=== PATIENT | male | born 1980 | race Caucasian/White ===

== ENCOUNTER 2017-08-24 10:33 | Inpatient (IN) | payer OTHER ==
[2017-08-24 10:38] VITALS: BMI 25.9
--- NOTE | 2017-08-24 12:38 | HP ---
COWS - Scale Resting Pulse: 1= [place] 81-100 Sweatin= Chills/Flushing Restless Observation: 3= Extraneous Movement Pupil Size: 1= Pupils >than Normal Bone or Joint Aches: 2= Severe Diffuse Aches Runny Nose/ Eye Tearin= Runny Nose/Eyes GI Upset > 30mins: 1= Stomach Cramp Tremor Observation: 2= Slight Tremor Visible Yawning Observation: 2= >3x During Session Anxiety or Irritability: 2=Irritable/Anxious Goose Flesh Skin: 0=Smooth Skin COWS Score: 17 Admission [facility] Chief Complaint: withdrawal sx Allergies/Adverse Reactions: Allergies Allergy/AdvReac Type Severity Reaction Status Date / Time No Known Allergies Allergy Verified 08/24/17 12:17 History of Present Illness: 37 years old male with long history of opiate, nicotine dependence has hypertension diabetes i is admitted to detox Exam Limitations: No Limitations - Ebola screening Have you traveled outside of the country in the last 21 days: No (N) Have you had contact with anyone from an Ebola affected area: No Have you been sick,other than usual withdrawal symptoms: No Do you have a fever: No - Review of Systems Constitutional: Changes in sleep, Weight Stable EENT: reports: Blurred Vision (eye glasses) Respiratory: reports: No Symptoms reported Cardiac: reports: No Symptoms Reported GI: reports: Nausea, Poor Fluid Intake, Abdominal cramping : reports: No Symptoms Reported Musculoskeletal: reports: Back Pain, Joint Pain, Muscle Pain, Neck Pain Integumentary: reports: Change in Color (arms iv heroin) Neuro: reports: Tremors Endocrine: reports: No Symptoms Reported Hematology: reports: No Symptoms Reported Psychiatric: reports: Judgement Intact, Orientated x3, Anxious, Depressed Other Systems: Reviewed and Negative Patient History - Patient Medical History Hx Anemia: No Hx Asthma: No Hx Chronic Obstructive Pulmonary Disease (COPD): No Hx Cancer: No Hx Cardiac Disorders: No Hx Congestive Heart Failure: No Hx Hypertension: Yes Hx Hypercholesterolemia: No Hx Pacemaker: No HX Cerebrovascular Accident: No Hx Seizures: No Hx Dementia: No Hx Diabetes: Yes (type i diabetes) Hx Gastrointestinal Disorders: No Hx Liver Disease: No Hx Genitourinary Disorders: No Hx Sexually Transmitted Disorders: No Hx Renal Disease (ESRD): No Hx Thyroid Disease: No Hx Human Immunodeficiency Virus (HIV): No (last 2014) Hx Hepatitis C: No Hx Depression: Yes Hx Suicide Attempt: No Hx Bipolar Disorder: No Hx Schizophrenia: No - Patient Surgical History Past Surgical History: No Hx Neurologic Surgery: No Hx Cataract Extraction: No Hx Cardiac Surgery: No Hx Lung Surgery: No Hx Breast Surgery: No Hx Breast Biopsy: No Hx Abdominal Surgery: No Hx Appendectomy: No Hx Cholecystectomy: No Hx Genitourinary Surgery: No Hx Orthopedic Surgery: No - PPD History Previous Implant?: Yes Documented Results: Negative w/proof Implanted On Prior R Admission?: Yes Date: 03/27/15 PPD to be Administered?: Yes - Smoking Cessation Smoking history: Current every day smoker Have you smoked in the past 12 months: Yes Aproximately how many cigarettes per day: 20 Cigars Per Day: 0 Hx Chewing Tobacco Use: No Initiated information on smoking cessation: Yes 'Breaking Loose' booklet given: 08/24/17 - Substance & Tx. History Hx Alcohol Use: No Hx Substance Use: Yes Substance Use Type: Opiates Hx Substance Use Treatment: Yes (2014) Family Disease History - Family Disease History Other Family History: I am not friend with them. No contact with them Admission Physical Exam [facility] - Vital Signs Vital Signs: Vital Signs - 24 hr 08/24/17 10:36 Temperature 97.7 F Pulse Rate 83 Respiratory 18 Rate Blood Pressure 136/92 - Physical General Appearance: Yes: Nourished, Appropriately Dressed, Moderate Distress, Tremorous, Irritable, Sweating, Anxious HEENTM: Yes: Hearing grossly Normal, Normal ENT Inspection, Normocephalic, Normal Voice Respiratory: Yes: Chest Non-Tender, Lungs Clear, Normal Breath Sounds, No Respiratory Distress, No Accessory Muscle Use Neck: Yes: Supple, Trachea in good position Breast: Yes: Breasts Symetrical Cardiology: Yes: Regular Rhythm, Regular Rate, S1, S2 Abdominal: Yes: Normal Bowel Sounds, Non Tender, Soft Genitourinary: Yes: Within Normal Limits Back: Yes: Normal Inspection Musculoskeletal: Yes: full range of Motion, Gait Steady, Back pain, Muscle Pain Extremities: Yes: Normal Inspection, Normal Range of Motion, Non-Tender, Tremors Neurological: Yes: Fully Oriented, Alert, Motor Strength 5/5, Normal Response, Depressed Affect Integumentary: Yes: Warm, Track Beltran Lymphatic: Yes: Within Normal Limits - Diagnostic (1) Opioid dependence with withdrawal Current Visit: Yes Status: Acute (2) Nicotine dependence Current Visit: Yes Status: Acute Qualifiers: Nicotine product type: cigarettes Substance use status: in withdrawal Qualified Code(s): F17.213 - Nicotine dependence, cigarettes, with withdrawal (3) Diabetes type I Current Visit: Yes Status: Chronic Qualifiers: Diabetes mellitus complication status: without complication Qualified Code( s): E10.9 - Type 1 diabetes mellitus without complications Cleared for Admission S - Detox or Rehab [facility] Level of Care: Medically Managed Detox Regimen/Protocol: Methadone [facility] Breath Alcohol Content Breath Alcohol Content: 0 Urine Drug Screen - Results Drug Screen Negative: No Urine Drug Screen Results: OPI-Opiates
[2017-08-24] MEDS ORDERED: guaiFENesin/D-METHORPHAN HB 10 ML UNIT-DOSE CUPS PO PRN (12:41)
[2017-08-24] MEDS ORDERED: LOPERAMIDE HCL 2 MG CAPSULE PO PRN (12:41)
[2017-08-24] MEDS ORDERED: MAGNESIUM CITRATE 300 ML BOTTLE PO PRN (12:41)
[2017-08-24] MEDS ORDERED: IBUPROFEN 400 MG TABLET (FP) PO PRN (12:41)
[2017-08-24] MEDS ORDERED: MAG HYDROX/AL HYDROX/SIMETH 30 ML UNIT-DOSE CUP PO PRN (12:41)
[2017-08-24] MEDS ORDERED: NICOTINE POLACRILEX 4 MG GUM BC PRN (12:41)
[2017-08-24] MEDS ORDERED: P-EPHED 60MG/TRIPROLIDI 2.5MG TABLET PO PRN (12:41)
[2017-08-24] MEDS ORDERED: ACETAMINOPHEN 325 MG TABLET (FP) PO PRN (12:41)
[2017-08-24] MEDS ORDERED: MENTHOL/PHENOL 1 EACH UD MM PRN (12:41)
[2017-08-24] MEDS ORDERED: MAGNESIUM HYDROX 2400MG/30ML ORAL SUSPENSION 30 ML CUP PO PRN (12:41)
[2017-08-24] MEDS ORDERED: METHADONE HCL 10 MG TABLET (FOR DETOX USE ONLY) PO ONE ×2 (13:15→23:00)
[2017-08-24] MEDS: diazePAM 5 MG TABLET PO PRN ×2 (15:21→22:01)
[2017-08-24] MEDS ORDERED: INSULIN SLIDING SCALE (NOVOLOG) 1 VIAL SQ SCH (16:30)
[2017-08-24] MEDS: INSULIN DETEMIR 100 UNITS/ML MDV SQ SCH ×2 (16:36→17:55)
[2017-08-24 18:12] LABS: URINE APPEARANCE CLEAR; URINE BILIRUBIN NEGATIVE (NEGATIVE); URINE BLOOD NEGATIVE (NEGATIVE); URINE COLOR YELLOW; URINE GLUCOSE (UA) 3+ (NEGATIVE); URINE KETONE 2+ (NEGATIVE); URINE LEUK ESTERASE NEGATIVE (NEGATIVE); URINE NITRITE NEGATIVE (NEGATIVE); URINE PROTEIN NEGATIVE (NEGATIVE)
[2017-08-24] MEDS: THIAMINE HCL 100 MG TABLET (FP) PO SCH (22:01)
[2017-08-25] MEDS: INSULIN DETEMIR 100 UNITS/ML MDV SQ SCH ×2 (06:40→16:48)
--- NOTE | 2017-08-25 07:15 | PN ---
S Progress Note Note: patient is iddm,bgm is 346,to place on insulin coverage see protocol ahs
[2017-08-25] MEDS ORDERED: INSULIN (NOVOLOG) ASPART 100 UNITS/ML 10ML VIAL ONE ×2 (07:36→13:41)
[2017-08-25] MEDS ORDERED: INSULIN (NOVOLOG) ASPART 100 UNITS/ML 10ML VIAL SQ ONE (09:15)
--- NOTE | 2017-08-25 09:22 | EKG ---
Test Reason : Blood Pressure : / mmHG Vent. Rate : 074 BPM Atrial Rate : 074 BPM P-R Int : 152 ms QRS Dur : 096 ms QT Int : 394 ms P-R-T Axes : 057 009 021 degrees QTc Int : 437 ms NORMAL SINUS RHYTHM NONSPECIFIC T WAVE ABNORMALITY ABNORMAL ECG WHEN COMPARED WITH ECG OF 13-AUG-2003 08:21, NONSPECIFIC T WAVE ABNORMALITY HAS REPLACED INVERTED T WAVES IN ANTEROLATERAL LEADS Confirmed by LA AQUINO, CHIRAG ([id number]) on 08/25/2017 9:21:52 AM Referred By: Confirmed By:CHIRAG TOVAR MD
[2017-08-25] MEDS: diazePAM 5 MG TABLET PO PRN ×2 (09:24→18:46)
[2017-08-25] MEDS: NICOTINE 21 MG/24 HOURS TOPICAL PATCH TD SCH (09:24)
[2017-08-25] MEDS: PRENATAL VITAMINS W/ FOLIC ACID TABLET (FP) PO SCH (09:26)
[2017-08-25] MEDS: LISINOPRIL 5 MG TABLET (FP) PO SCH (09:26)
[2017-08-25 09:52] LABS: HEMATOCRIT 45.2 % (35.4-49); HEMOGLOBIN 14.7 GM/dL (11.7-16.9); MCH 30.3 pg (25.7-33.7); MCHC 32.6 g/dl (32.0-35.9); MEAN CELL VOLUME 92.8 fl (80-96); MEAN PLT VOLUME 9.9 fl (7.5-11.1); PLATELET COUNT 168 K/MM3 (134-434); RBC 4.86 M/mm3 (4.00-5.60); WHITE BLOOD COUNT 5.6 K/mm3 (4.0-10.0)
[2017-08-25] MEDS ORDERED: METHADONE HCL 10 MG TABLET (FOR DETOX USE ONLY) PO ONE (10:00)
[2017-08-25 10:08] LABS: CHLORIDE 101 mmol/L (98-107); POTASSIUM 3.8 mmol/L (3.5-5.1); SODIUM 138 mmol/L (136-145)
[2017-08-25 10:21] LABS: ALBUMIN 4.3 g/dl (3.4-5.0); ALK PHOS 68 U/L (45-117); ANION GAP 7 (8-16); BILIRUBIN,TOTAL 0.9 mg/dL (0.2-1.0); BLOOD UREA NITROGEN 17 mg/dL (7-18); CALCIUM 8.8 mg/dL (8.5-10.1); CO2 30 mmol/L (21-32); CREATININE 0.9 mg/dL (0.7-1.3); GLUCOSE,RANDOM 107 mg/dL (74-106); SGOT/AST 19 U/L (15-37); SGPT/ALT 22 U/L (12-78); TOT PROT 7.1 g/dl (6.4-8.2)
--- NOTE | 2017-08-25 10:56 | PN ---
[facility] COWS - Scale Resting Pulse: 0= [place] 80 or Below Sweatin= Chills/Flushing Restless Observation: 3= Extraneous Movement Pupil Size: 0= Normal to Room Light Bone or Joint Aches: 4=Acute Joint/Muscle Pain Runny Nose/ Eye Tearin= Nasal Congestion GI Upset > 30mins: 1= Stomach Cramp Tremor Observation of Outstretched Hands: 1= Tremor [place], Not Seen Yawning Observation: 1= 1-2x During Session Anxiety or Irritability: 2=Irritable/Anxious Goose Flesh Skin: 0=Smooth Skin COWS Score: 14 S Progress Note (SOAP) Subjective: ANXIETY,SWEATS,IRRITABILITY. Objective: 08/25/17 10:56 Vital Signs Temperature 97.0 F L 08/25/17 09:27 Pulse Rate 54 L 08/25/17 09:27 Respiratory Rate 19 08/25/17 09:27 Blood Pressure 102/64 08/25/17 09:27 O2 Sat by Pulse Oximetry (%) Laboratory Last Values WBC 5.6 K/mm3 (4.0-10.0) 08/25/17 06:15 RBC 4.86 M/mm3 (4.00-5.60) 08/25/17 06:15 Hgb 14.7 GM/dL (11.7-16.9) 08/25/17 06:15 Hct 45.2 % (35.4-49) 08/25/17 06:15 MCV 92.8 fl (80-96) 08/25/17 06:15 MCH 30.3 pg (25.7-33.7) 08/25/17 06:15 MCHC 32.6 g/dl (32.0-35.9) 08/25/17 06:15 RDW 13.0 % (11.9-15.9) 08/25/17 06:15 Plt Count 168 K/MM3 (134-434) D 08/25/17 06:15 MPV 9.9 fl (7.5-11.1) 08/25/17 06:15 Sodium 138 mmol/L (136-145) 08/25/17 06:15 Potassium 3.8 mmol/L (3.5-5.1) 08/25/17 06:15 Chloride 101 mmol/L (98-107) 08/25/17 06:15 Carbon Dioxide 30 mmol/L (21-32) 08/25/17 06:15 Anion Gap 7 (8-16) L 08/25/17 06:15 BUN 17 mg/dL (7-18) 08/25/17 06:15 Creatinine 0.9 mg/dL (0.7-1.3) 08/25/17 06:15 Creat Clearance w eGFR > 60 (>60) 08/25/17 06:15 POC Glucometer 346 UNITS (80-120) 08/25/17 05:07 Random Glucose 107 mg/dL (74-106) H D 08/25/17 06:15 Calcium 8.8 mg/dL (8.5-10.1) 08/25/17 06:15 Total Bilirubin 0.9 mg/dL (0.2-1.0) D 08/25/17 06:15 AST 19 U/L (15-37) D 08/25/17 06:15 ALT 22 U/L (12-78) D 08/25/17 06:15 Alkaline Phosphatase 68 U/L (45-117) 08/25/17 06:15 Total Protein 7.1 g/dl (6.4-8.2) 08/25/17 06:15 Albumin 4.3 g/dl (3.4-5.0) 08/25/17 06:15 Urine Color Yellow 08/24/17 14:40 Urine Appearance Clear 08/24/17 14:40 Urine pH 5.0 (5.0-8.0) 08/24/17 14:40 Ur Specific [place] 1.028 (1.001-1.035) 08/24/17 14:40 Urine Protein Negative (NEGATIVE) 08/24/17 14:40 Urine Glucose (UA) 3+ (NEGATIVE) H 08/24/17 14:40 Urine Ketones 2+ (NEGATIVE) H 08/24/17 14:40 Urine Blood Negative (NEGATIVE) 08/24/17 14:40 Urine Nitrite Negative (NEGATIVE) 08/24/17 14:40 Urine Bilirubin Negative (NEGATIVE) 08/24/17 14:40 Urine Urobilinogen 2.0 mg/dL (0.2-1.0) 08/24/17 14:40 Ur Leukocyte Esterase Negative (NEGATIVE) 08/24/17 14:40 Assessment: 08/25/17 10:56 WITHDRAWAL SX Plan: CONTINUE DETOX
[2017-08-25] MEDS: INSULIN (NOVOLOG) ASPART 100 UNITS/ML 10ML VIAL SQ SCH ×3 (11:38→21:20)
--- NOTE | 2017-08-25 19:15 | PN ---
[facility] Progress Note Note: Patient made aware that NPH Insulin that takes at home unable to be reconciled at this time ( PER [facility] PHARMACIST) due to fact that vial has already been opened when patient brought it with him at time of admission. Patient made aware that the Levemir insulin prescribed due to [facility] guidelines of conversion from NPH to Levemir. Patient also currently prescribed BGM ACHS with Regular Insulin Sliding Scale coverage (which patient reports to be his BGM / Regular Insulin Sliding Scale Coverage schedule at home. Patient advised to notify Nursing staff immediately should he notice the development of any unusual symptoms at any time. Patient verbalized understanding of explanation / recommendation. Jg Ruiz NP
[2017-08-25] MEDS: THIAMINE HCL 100 MG TABLET (FP) PO SCH (21:21)
[2017-08-26] MEDS: diazePAM 5 MG TABLET PO PRN ×2 (05:11→10:08)
[2017-08-26] MEDS: INSULIN DETEMIR 100 UNITS/ML MDV SQ SCH (07:24)
[2017-08-26] MEDS: INSULIN (NOVOLOG) ASPART 100 UNITS/ML 10ML VIAL SQ SCH ×2 (07:24→11:15)
[2017-08-26] MEDS ORDERED: METHADONE HCL 5 MG TABLET (FOR DETOX USE ONLY) PO ONE (10:00)
[2017-08-26] MEDS: LISINOPRIL 5 MG TABLET (FP) PO SCH (10:08)
[2017-08-26] MEDS: NICOTINE 21 MG/24 HOURS TOPICAL PATCH TD SCH (10:09)
[2017-08-26] MEDS: PRENATAL VITAMINS W/ FOLIC ACID TABLET (FP) PO SCH (10:09)
[2017-08-26 14:02] VITALS: BP 130/87; PULSE 97; TEMP 98.3
--- NOTE | 2017-08-26 14:15 | DS ---
[facility] Detox Discharge Summary Admission Date: 08/24/17 Discharge Date: 08/26/17 - History Present History: Opioid Dependence Additional Comments: PATIENT DOES NOT WISH TO STAY TO COMPLETE DETOX REGIMEN. RISKS OF LEAVING DETOX UNIT AGAINST MEDICAL ADVICE AND PRIOR TO COMPLETION OF DETOX REGIMEN EXPLAINED TO PATIENT. PATIENT ADVISED TO GO IMMEDIATELY TO NEAREST ER SHOULD ANY INTOLERABLE DETOX SYMPTOMS DEVELOP AT ANY TIME. PATIENT WAS DISCHARGED FROM DETOX UNIT IN STABLE MEDICAL CONDITION. Pertinent Past History: Type I DM, HTN, Nicotine Dependence. - Physical Exam Results Vital Signs: Vital Signs Temperature 98.3 F 08/26/17 13:57 Pulse Rate 97 H 08/26/17 13:57 Respiratory Rate 18 08/26/17 13:57 Blood Pressure 130/87 08/26/17 13:57 O2 Sat by Pulse Oximetry (%) Pertinent Admission Physical Exam Findings: WITHDRAWAL SYMPTOMS. Laboratory Tests 08/24/17 08/24/17 08/24/17 12:45 14:40 16:19 WBC RBC Hgb Hct MCV MCH MCHC RDW Plt Count MPV Sodium Potassium Chloride Carbon Dioxide Anion Gap BUN Creatinine Creat Clearance w eGFR POC Glucometer 173 55 Random Glucose Calcium Total Bilirubin AST ALT Alkaline Phosphatase Total Protein Albumin Urine Color Yellow Urine Appearance Clear Urine pH 5.0 Ur Specific [place] 1.028 Urine Protein Negative Urine Glucose (UA) 3+ H Urine Ketones 2+ H Urine Blood Negative Urine Nitrite Negative Urine Bilirubin Negative Urine Urobilinogen 2.0 Ur Leukocyte Esterase Negative RPR Titer 08/24/17 08/24/17 08/24/17 17:14 17:48 21:11 WBC RBC Hgb Hct MCV MCH MCHC RDW Plt Count MPV Sodium Potassium Chloride Carbon Dioxide Anion Gap BUN Creatinine Creat Clearance w eGFR POC Glucometer 55 84 131 Random Glucose Calcium Total Bilirubin AST ALT Alkaline Phosphatase Total Protein Albumin Urine Color Urine Appearance Urine pH Ur Specific [place] Urine Protein Urine Glucose (UA) Urine Ketones Urine Blood Urine Nitrite Urine Bilirubin Urine Urobilinogen Ur Leukocyte Esterase RPR Titer 08/25/17 08/25/17 08/25/17 05:07 06:15 06:15 WBC 5.6 RBC 4.86 Hgb 14.7 Hct 45.2 MCV 92.8 MCH 30.3 MCHC 32.6 RDW 13.0 Plt Count 168 D MPV 9.9 Sodium 138 Potassium 3.8 Chloride 101 Carbon Dioxide 30 Anion Gap 7 L BUN 17 Creatinine 0.9 Creat Clearance w eGFR > 60 POC Glucometer 346 Random Glucose 107 H D Calcium 8.8 Total Bilirubin 0.9 D AST 19 D ALT 22 D Alkaline Phosphatase 68 Total Protein 7.1 Albumin 4.3 Urine Color Urine Appearance Urine pH Ur Specific [place] Urine Protein Urine Glucose (UA) Urine Ketones Urine Blood Urine Nitrite Urine Bilirubin Urine Urobilinogen Ur Leukocyte Esterase RPR Titer 08/25/17 08/25/17 08/25/17 06:15 11:35 16:17 WBC RBC Hgb Hct MCV MCH MCHC RDW Plt Count MPV Sodium Potassium Chloride Carbon Dioxide Anion Gap BUN Creatinine Creat Clearance w eGFR POC Glucometer 93 367 Random Glucose Calcium Total Bilirubin AST ALT Alkaline Phosphatase Total Protein Albumin Urine Color Urine Appearance Urine pH Ur Specific [place] Urine Protein Urine Glucose (UA) Urine Ketones Urine Blood Urine Nitrite Urine Bilirubin Urine Urobilinogen Ur Leukocyte Esterase RPR Titer Nonreactive 08/26/17 08/26/17 05:10 11:11 WBC RBC Hgb Hct MCV MCH MCHC RDW Plt Count MPV Sodium Potassium Chloride Carbon Dioxide Anion Gap BUN Creatinine Creat Clearance w eGFR POC Glucometer 249 282 Random Glucose Calcium Total Bilirubin AST ALT Alkaline Phosphatase Total Protein Albumin Urine Color Urine Appearance Urine pH Ur Specific [place] Urine Protein Urine Glucose (UA) Urine Ketones Urine Blood Urine Nitrite Urine Bilirubin Urine Urobilinogen Ur Leukocyte Esterase RPR Titer LABS NOTED. - Treatment Hospital Course: Detoxed Safely - Medication Discharge Medications: Ambulatory Orders Insulin NPH Human Isophane [Humulin N] 12 unit SQ ACDIN 08/24/17 Insulin NPH Human Isophane [Humulin N] 36 unit SQ ACBK 08/24/17 Insulin Regular [NOVOLIN R VIAL *IVPUSH / ER / ICU Only*] 0 units SQ BIDAC 08/24 Lisinopril [Zestril] 5 mg PO DAILY 08/24/17 - Diagnosis (1) Nicotine dependence Current Visit: Yes Status: Acute Qualifiers: Nicotine product type: cigarettes Substance use status: in withdrawal Qualified Code(s): F17.213 - Nicotine dependence, cigarettes, with withdrawal (2) Opioid dependence with withdrawal Current Visit: Yes Status: Acute (3) Diabetes type I Current Visit: Yes Status: Chronic Qualifiers: Diabetes mellitus complication status: without complication Qualified Code( s): E10.9 - Type 1 diabetes mellitus without complications (4) Hypertension Current Visit: Yes Status: Chronic Qualifiers: Hypertension type: essential hypertension Qualified Code(s): I10 - Essential (primary) hypertension - AMA Did Patient Leave Against Medical Advice: Yes (PATIENT DOES NOT WISH TO STAY TO COMPLETE DETOX REGIMEN.)
[2017-08-27] MEDS ORDERED: METHADONE HCL 5 MG TABLET (FOR DETOX USE ONLY) PO ONE (10:00)
[2017-08-28] MEDS ORDERED: METHADONE HCL 10 MG TABLET (FOR DETOX USE ONLY) PO ONE (10:00)
[2017-08-29] MEDS ORDERED: METHADONE HCL 5 MG TABLET (FOR DETOX USE ONLY) PO ONE (06:00)
== END 2017-08-26 14:15 | disposition left against medical advice (07) | DRG 770 ==
LOC: YASAS 10:33 → Y3N 13:39
PROVIDERS: ADMIT Internal Medicine; ATTEND Internal Medicine
PROC: HZ2ZZZZ Detoxification Services for Substance Abuse Treatment (ICD-10-PCS; principal; 2017-08-24)
DX: F11.23 Opioid dependence with withdrawal (principal); F17.213 Nicotine dependence, cigarettes, with withdrawal; E10.9 Type 1 diabetes mellitus without complications; I10 Essential (primary) hypertension; Z79.4 Long term (current) use of insulin
CPT/HCPCS: 36415; 80053; 81003; 82962; 85027; 86593; 93005; 93010

== ENCOUNTER 2017-10-09 08:20 | Inpatient (IN) | payer OTHER ==
[2017-10-09 09:38] VITALS: BMI 24.8
--- NOTE | 2017-10-09 11:02 | HP ---
COWS - Scale Resting Pulse: 0= [place] 80 or Below Sweatin= Chills/Flushing Restless Observation: 1= Difficult to Sit Still Pupil Size: 1= Pupils >than Normal Bone or Joint Aches: 1= Mild Discomfort Runny Nose/ Eye Tearin= Nasal Congestion GI Upset > 30mins: 2= Nausea/Diarrhea Tremor Observation: 2= Slight Tremor Visible Yawning Observation: 1= 1-2x During Session Anxiety or Irritability: 2=Irritable/Anxious Goose Flesh Skin: 3=Piloerection COWS Score: 15 CIWA Score - CIWA Score Nausea/Vomitin Muscle Tremors: 3 Anxiety: 3 Agitation: 3 Paroxysmal Sweats: 3 Orientation: 0-Oriented Tacttile Disturbances: 0-None Auditory Disturbances: 0-None Visual Disturbances: 0-None Headache: 1-Very Mild CIWA-Ar Total Score: 16 Admission ROS S - HPI Chief Complaint: alcohol, heorin and benzodiazepine withdrawal sx Allergies/Adverse Reactions: Allergies Allergy/AdvReac Type Severity Reaction Status Date / Time FISH Allergy Severe Difficulty Uncoded 10/09/17 10:05 Breathing NKDA Allergy Uncoded 10/09/17 10:05 History of Present Illness: 37 yo m with h/o oud, severe, marijuana, benzodiazepine and alcohol dependence requesting inpatient detoxification because of withdrawal sx. smokes 1PPD. no h/i siezures, DT or SI at thsi time. PMHX DM, HTN on meds. h/o IDU, endocarditis adn multiple drug overdoses Exam Limitations: No Limitations - Ebola screening Have you traveled outside of the country in the last 21 days: No (N) Have you had contact with anyone from an Ebola affected area: No Have you been sick,other than usual withdrawal symptoms: No Do you have a fever: No - Review of Systems Constitutional: Chills, Diaphoresis, Night Sweats, Changes in sleep, Unintentional Wgt. Loss EENT: reports: Tearing, Nose Congestion Respiratory: reports: No Symptoms reported Cardiac: reports: No Symptoms Reported GI: reports: Diarrhea, Nausea, Poor Appetite, Poor Fluid Intake, Vomiting, Indigestion, Abdominal cramping : reports: No Symptoms Reported Musculoskeletal: reports: Back Pain, Joint Pain, Muscle Pain Integumentary: reports: Flushing, Sweating Neuro: reports: Headache, Tremors Endocrine: reports: Increased Thirst Hematology: reports: No Symptoms Reported Psychiatric: reports: Judgement Intact, Mood/Affect Appropiate, Orientated x3, Anxious, Depressed Other Systems: Reviewed and Negative Patient History - Patient Medical History Hx Anemia: No Hx Asthma: No Hx Chronic Obstructive Pulmonary Disease (COPD): No Hx Cancer: No Hx Cardiac Disorders: Yes (endocarditis in 1996) Hx Congestive Heart Failure: No Hx Hypertension: Yes Hx Hypercholesterolemia: No Hx Pacemaker: No HX Cerebrovascular Accident: No Hx Seizures: No Hx Dementia: No Hx Diabetes: Yes (IDDM) Hx Gastrointestinal Disorders: No Hx Liver Disease: No Hx Genitourinary Disorders: No Hx Sexually Transmitted Disorders: No Hx Renal Disease (ESRD): No Hx Thyroid Disease: No Hx Human Immunodeficiency Virus (HIV): No (last 2014) Hx Hepatitis C: No Hx Depression: No Hx Suicide Attempt: No Hx Bipolar Disorder: No Hx Schizophrenia: No - Patient Surgical History Past Surgical History: No Hx Neurologic Surgery: No Hx Cataract Extraction: No Hx Cardiac Surgery: No Hx Lung Surgery: No Hx Breast Surgery: No Hx Breast Biopsy: No Hx Abdominal Surgery: No Hx Appendectomy: No Hx Cholecystectomy: No Hx Genitourinary Surgery: No Hx Section: No Hx Orthopedic Surgery: No Anesthesia Reaction: No - PPD History Previous Implant?: Yes Documented Results: Negative w/proof Implanted On Prior [facility] Admission?: Yes Date: 08/26/17 Results: 0 mm PPD to be Administered?: No - Reproductive History Patient is a Female of Child Bearing Age (11 -55 yrs old): No Patient : No - Smoking Cessation Smoking history: Current every day smoker Have you smoked in the past 12 months: Yes Aproximately how many cigarettes per day: 30 Cigars Per Day: 0 Hx Chewing Tobacco Use: No Initiated information on smoking cessation: Yes 'Breaking Loose' booklet given: 10/09/17 - Substance & Tx. History Hx Alcohol Use: Yes Hx Substance Use: Yes Substance Use Type: Alcohol, Heroin, Marijuana, Opiates, Prescribed, Tranquilizers Hx Substance Use Treatment: Yes ([facility]) - Substances Abused Heroin Route: Injection Frequency: Daily Amount used: 18-25 bags Age of first use: 12 Date of Last Use: 10/09/17 Xanax Route: Oral Frequency: Daily Amount used: 8 mg. Age of first use: 22 Date of Last Use: 10/08/17 Alcohol-vodka/rum Route: Oral Frequency: 3-6 times per week Amount used: 2 pts. Age of first use: 11 Date of Last Use: 10/08/17 Marijuana Route: Smoking Frequency: Daily Amount used: $30 Age of first use: 11 Date of Last Use: 10/08/17 Family Disease History - Family Disease History Family History: Denies Admission Physical Exam [facility] - Vital Signs Vital Signs: Vital Signs - 24 hr 10/09/17 09:37 Temperature 97.6 F Pulse Rate 72 Respiratory 18 Rate Blood Pressure 119/70 - Physical General Appearance: Yes: Nourished, Appropriately Dressed, Disheveled, Mild Distress, Thin, Tremorous, Irritable, Sweating, Anxious HEENTM: Yes: EOMI, Hearing grossly Normal, Normocephalic, Normal Voice, LUCIA, Pharynx Normal, Nasal Congestion, Rhinorrhea Respiratory: Yes: Within Normal Limits, Chest Non-Tender, Lungs Clear, Normal Breath Sounds, No Respiratory Distress, No Accessory Muscle Use Neck: Yes: Within Normal Limits, No masses,lesions,Nodules, Supple, Trachea in good position Breast: Yes: Breast Exam Deferred Cardiology: Yes: Within Normal Limits, Regular Rhythm, Regular Rate, S1, S2 Genitourinary: Yes: Within Normal Limits Back: Yes: Within Normal Limits, Normal Inspection Musculoskeletal: Yes: full range of Motion, Gait Steady, Pelvis Stable, Back pain, Muscle Pain Extremities: Yes: Normal Capillary Refill, Normal Range of Motion, Non-Tender, Tremors Neurological: Yes: dairy nutrition consultant II-XII NML intact, Fully Oriented, Alert, Motor Strength 5/5, Normal Response, Depressed Affect Integumentary: Yes: Normal Color, Warm, Diaphoresis, Moist, Track Beltran (no infection from IDU) Lymphatic: Yes: Within Normal Limits - Addiitonal Findings: withdrawal sx - Diagnostic (1) Alcohol dependence with uncomplicated withdrawal Current Visit: Yes Status: Acute (2) Nicotine dependence Current Visit: No Status: Acute Qualifiers: (3) Opioid dependence with withdrawal Current Visit: No Status: Acute (4) Type 1 diabetes mellitus maturity onset Current Visit: No Status: Acute (5) Diabetes type I Current Visit: No Status: Chronic Qualifiers: (6) Hypertension Current Visit: No Status: Chronic Qualifiers: (7) Drug overdoses Current Visit: Yes Status: Acute Cleared for Admission [facility] - Detox or Rehab [facility] Level of Care: Medically Managed Detox Regimen/Protocol: Methadone/Valium [facility] Breath Alcohol Content Breath Alcohol Content: 0 Urine Drug Screen - Results Drug Screen Negative: No Urine Drug Screen Results: THC-Marijuana, OPI-Opiates, BZO-Benzodiazepines, MTD- Methadone
[2017-10-09] MEDS ORDERED: hydrOXYzine PAMOATE 50 MG CAPSULE (FP) PO PRN (11:03)
[2017-10-09] MEDS ORDERED: guaiFENesin/D-METHORPHAN HB 10 ML UNIT-DOSE CUPS PO PRN (11:03)
[2017-10-09] MEDS ORDERED: diazePAM 5 MG TABLET PO PRN (11:03)
[2017-10-09] MEDS ORDERED: IBUPROFEN 400 MG TABLET (FP) PO PRN (11:03)
[2017-10-09] MEDS ORDERED: MAG HYDROX/AL HYDROX/SIMETH 30 ML UNIT-DOSE CUP PO PRN (11:03)
[2017-10-09] MEDS ORDERED: P-EPHED 60MG/TRIPROLIDI 2.5MG TABLET PO PRN (11:03)
[2017-10-09] MEDS ORDERED: LOPERAMIDE HCL 2 MG CAPSULE PO PRN (11:03)
[2017-10-09] MEDS ORDERED: MAGNESIUM HYDROX 2400MG/30ML ORAL SUSPENSION 30 ML CUP PO PRN (11:03)
[2017-10-09] MEDS ORDERED: ACETAMINOPHEN 325 MG TABLET (FP) PO PRN (11:03)
[2017-10-09] MEDS ORDERED: MAGNESIUM CITRATE 300 ML BOTTLE PO PRN (11:03)
[2017-10-09] MEDS ORDERED: NICOTINE POLACRILEX 2 MG GUM BC PRN (11:03)
[2017-10-09] MEDS ORDERED: MENTHOL/PHENOL 1 EACH UD MM PRN (11:03)
[2017-10-09] MEDS ORDERED: INSULIN SLIDING SCALE (NOVOLOG) 1 VIAL SQ PRN (11:04)
[2017-10-09] MEDS ORDERED: diazePAM 5 MG TABLET PO ONE (12:45)
[2017-10-09] MEDS: METHADONE HCL 10 MG TABLET (FOR DETOX USE ONLY) PO ONE ×2 (12:54→12:57)
[2017-10-09] MEDS: NICOTINE 21 MG/24 HOURS TOPICAL PATCH TD SCH (12:55)
[2017-10-09] MEDS: diazePAM 5 MG TABLET PO SCH ×2 (15:03→22:52)
[2017-10-09] MEDS ORDERED: INSULIN DETEMIR 100 UNITS/ML MDV SQ SCH (16:30)
[2017-10-09] MEDS ORDERED: INSULIN (NOVOLOG) ASPART 100 UNITS/ML 10ML VIAL ONE ×2 (18:28→22:59)
[2017-10-09 20:23] LABS: URINE APPEARANCE CLEAR; URINE BILIRUBIN NEGATIVE (<2.0 mg/dL); URINE BLOOD NEGATIVE (NEGATIVE); URINE COLOR YELLOW; URINE GLUCOSE (UA) 1+ (NEGATIVE); URINE KETONE NEGATIVE (NEGATIVE); URINE LEUK ESTERASE NEGATIVE (NEGATIVE); URINE NITRITE NEGATIVE (NEGATIVE); URINE PROTEIN NEGATIVE (NEGATIVE)
[2017-10-09] MEDS ORDERED: MELATONIN 5 MG TABLETS PO PRN (22:00)
[2017-10-09] MEDS ORDERED: THIAMINE HCL 100 MG TABLET (FP) PO SCH (22:00)
[2017-10-09] MEDS: INSULIN SLIDING SCALE (NOVOLOG) 1 VIAL SQ SCH (22:52)
[2017-10-09] MEDS ORDERED: METHADONE HCL 10 MG TABLET (FOR DETOX USE ONLY) PO ONE (23:00)
[2017-10-10] MEDS: diazePAM 5 MG TABLET PO SCH ×2 (05:48→13:04)
[2017-10-10] MEDS ORDERED: INSULIN DETEMIR 100 UNITS/ML MDV SQ SCH (07:00)
[2017-10-10] MEDS: INSULIN SLIDING SCALE (NOVOLOG) 1 VIAL SQ SCH ×2 (07:45→11:06)
[2017-10-10 09:59] LABS: HEMATOCRIT 44.2 % (35.4-49); HEMOGLOBIN 14.8 GM/dL (11.7-16.9); MCH 31.2 pg (25.7-33.7); MCHC 33.5 g/dl (32.0-35.9); MEAN CELL VOLUME 93.1 fl (80-96); MEAN PLT VOLUME 9.9 fl (7.5-11.1); PLATELET COUNT 255 K/MM3 (134-434); RBC 4.75 M/mm3 (4.00-5.60); RDW 12.6 % (11.9-15.9); WHITE BLOOD COUNT 5.7 K/mm3 (4.0-10.0)
[2017-10-10] MEDS ORDERED: METHADONE HCL 10 MG TABLET (FOR DETOX USE ONLY) PO SCH (10:00)
[2017-10-10] MEDS ORDERED: LISINOPRIL 5 MG TABLET (FP) PO SCH (10:00)
[2017-10-10] MEDS ORDERED: PRENATAL VITAMINS W/ FOLIC ACID TABLET (FP) PO SCH (10:00)
[2017-10-10 10:13] LABS: ALBUMIN 3.8 g/dl (3.4-5.0); ANION GAP 3 (8-16); BILIRUBIN,TOTAL 0.3 mg/dL (0.2-1.0); BLOOD UREA NITROGEN 16 mg/dL (7-18); CHLORIDE 100 mmol/L (98-107); CO2 36 mmol/L (21-32); GLUCOSE,RANDOM 159 mg/dL (74-106); POTASSIUM 4.4 mmol/L (3.5-5.1); SGOT/AST 18 U/L (15-37); SGPT/ALT 25 U/L (12-78); SODIUM 139 mmol/L (136-145)
[2017-10-10 10:14] LABS: ALK PHOS 65 U/L (45-117); CALCIUM 9.2 mg/dL (8.5-10.1); CREATININE 0.9 mg/dL (0.7-1.3); TOT PROT 6.9 g/dl (6.4-8.2)
--- NOTE | 2017-10-10 10:15 | EKG ---
Test Reason : Blood Pressure : / mmHG Vent. Rate : 061 BPM Atrial Rate : 061 BPM P-R Int : 146 ms QRS Dur : 086 ms QT Int : 448 ms P-R-T Axes : 063 009 032 degrees QTc Int : 450 ms SINUS RHYTHM WITH OCCASIONAL PREMATURE VENTRICULAR COMPLEXES LOW VOLTAGE QRS BORDERLINE ECG Confirmed by Travis Sidhu MD ([id number]) on 10/10/2017 10:14:48 AM Referred By: Confirmed By:Travis Sidhu MD
[2017-10-10] MEDS: NICOTINE 21 MG/24 HOURS TOPICAL PATCH TD SCH (11:01)
[2017-10-10] MEDS ORDERED: INSULIN (NOVOLOG) ASPART 100 UNITS/ML 10ML VIAL ONE (11:07)
[2017-10-10] MEDS ORDERED: INSULIN DETEMIR 100 UNITS/ML MDV SQ ONE (11:45)
--- NOTE | 2017-10-10 12:44 | PN ---
S CIWA - CIWA Score Nausea/Vomitin Muscle Tremors: 3 Anxiety: 3 Agitation: 3 Paroxysmal Sweats: 1-Minimal Palms Moist Orientation: 0-Oriented Tacttile Disturbances: 1-Very Mild Itch/Numbness Auditory Disturbances: 1-Very Mild Visual Disturbances: 0-None Headache: 2-Mild CIWA-Ar Total Score: 17 BHS COWS - Scale Resting Pulse: 0= WI 80 or Below Sweatin= Chills/Flushing Restless Observation: 3= Extraneous Movement Pupil Size: 1= Pupils >than Normal Bone or Joint Aches: 2= Severe Diffuse Aches Runny Nose/ Eye Tearin= Runny Nose/Eyes GI Upset > 30mins: 2= Nausea/Diarrhea Tremor Observation of Outstretched Hands: 2= Slight Tremor Visible Yawning Observation: 1= 1-2x During Session Anxiety or Irritability: 2=Irritable/Anxious Goose Flesh Skin: 0=Smooth Skin COWS Score: 16 S Progress Note (SOAP) Subjective: ALERT,IRRITABLE,ANXIOUS,INTERRUPTED SLEEP,PAIN IN THE BODY AND BACK Objective: 10/10/17 12:41 Vital Signs Temperature 97.9 F 10/10/17 10:00 Pulse Rate 64 10/10/17 10:00 Respiratory Rate 18 10/10/17 10:00 Blood Pressure 125/77 10/10/17 10:00 O2 Sat by Pulse Oximetry (%) EKG NSR WITH OCCASIONAL PREMATURE VENTRICULAR COMPLEX Laboratory Last Values WBC 5.7 K/mm3 (4.0-10.0) 10/10/17 06:10 RBC 4.75 M/mm3 (4.00-5.60) 10/10/17 06:10 Hgb 14.8 GM/dL (11.7-16.9) 10/10/17 06:10 Hct 44.2 % (35.4-49) 10/10/17 06:10 MCV 93.1 fl (80-96) 10/10/17 06:10 MCH 31.2 pg (25.7-33.7) 10/10/17 06:10 MCHC 33.5 g/dl (32.0-35.9) 10/10/17 06:10 RDW 12.6 % (11.9-15.9) 10/10/17 06:10 Plt Count 255 K/MM3 (134-434) D 10/10/17 06:10 MPV 9.9 fl (7.5-11.1) 10/10/17 06:10 Sodium 139 mmol/L (136-145) 10/10/17 06:10 Potassium 4.4 mmol/L (3.5-5.1) 10/10/17 06:10 Chloride 100 mmol/L (98-107) 10/10/17 06:10 Carbon Dioxide 36 mmol/L (21-32) H 10/10/17 06:10 Anion Gap 3 (8-16) L 10/10/17 06:10 BUN 16 mg/dL (7-18) 10/10/17 06:10 Creatinine 0.9 mg/dL (0.7-1.3) 10/10/17 06:10 Creat Clearance w eGFR > 60 (>60) 10/10/17 06:10 POC Glucometer 99 UNITS (80-120) 10/10/17 07:51 Random Glucose 159 mg/dL (74-106) H D 10/10/17 06:10 Calcium 9.2 mg/dL (8.5-10.1) 10/10/17 06:10 Total Bilirubin 0.3 mg/dL (0.2-1.0) D 10/10/17 06:10 AST 18 U/L (15-37) 10/10/17 06:10 ALT 25 U/L (12-78) 10/10/17 06:10 Alkaline Phosphatase 65 U/L (45-117) 10/10/17 06:10 Total Protein 6.9 g/dl (6.4-8.2) 10/10/17 06:10 Albumin 3.8 g/dl (3.4-5.0) 10/10/17 06:10 Urine Color Yellow 10/09/17 17:30 Urine Appearance Clear 10/09/17 17:30 Urine pH 5.0 (5.0-8.0) 10/09/17 17:30 Ur Specific [place] 1.027 (1.001-1.035) 10/09/17 17:30 Urine Protein Negative (NEGATIVE) 10/09/17 17:30 Urine Glucose (UA) 1+ (NEGATIVE) H 10/09/17 17:30 Urine Ketones Negative (NEGATIVE) 10/09/17 17:30 Urine Blood Negative (NEGATIVE) 10/09/17 17:30 Urine Nitrite Negative (NEGATIVE) 10/09/17 17:30 Urine Bilirubin Negative (<2.0 mg/dL) 10/09/17 17:30 Urine Urobilinogen 2.0 mg/dL (0.2-1.0) 10/09/17 17:30 Ur Leukocyte Esterase Negative (NEGATIVE) 10/09/17 17:30 Assessment: 10/10/17 12:43 WITHDRAWAL SYMPTOM Plan: CONTINUE DETOX,[facility]GM MONITORING WITH INSULIN COVERAGE
[2017-10-10 17:07] VITALS: BP 105/60; PULSE 64; TEMP 98.4
--- NOTE | 2017-10-10 17:29 | DS ---
[facility] Detox Discharge Summary Admission Date: 10/09/17 Discharge Date: 10/10/17 - History Present History: Alcohol Dependence, Opioid Dependence Additional Comments: HTN DM type 1 Nicotine Dependence Pertinent Past History: Patient in no apparent distress. Patient insist on leaving today, although it advise for him to stay and continue to treatment. Denies suicidal / homicidal ideation. The patient verbalizes he understands the risks and complications that may result from the refusal of medical care which may include and permanent disability and has the mental capacity to make such decision. Patient advised to seek medical care at local ER , PCP or urgent care if symptoms worsen. Patient refuses refills on his insulin. Patient advise to follow up with Primary care provider within a week. - Physical Exam Results Vital Signs: Vital Signs Temperature 98.4 F 10/10/17 17:06 Pulse Rate 64 10/10/17 17:06 Respiratory Rate 16 10/10/17 17:06 Blood Pressure 105/60 10/10/17 17:06 O2 Sat by Pulse Oximetry (%) - Medication Discharge Medications: Ambulatory Orders Insulin NPH Human Isophane [Humulin N] 18 unit SQ ACDIN 08/24/17 Insulin NPH Human Isophane [Humulin N] 36 unit SQ ACBK 08/24/17 Insulin Regular [NOVOLIN R VIAL *IVPUSH / ER / ICU Only*] 0 units SQ QID PRN Lisinopril [Zestril] 5 mg PO DAILY 08/24/17 - Diagnosis (1) Alcohol dependence with uncomplicated withdrawal Current Visit: Yes Status: Acute (2) Nicotine dependence Current Visit: Yes Status: Acute Qualifiers: Nicotine product type: cigarettes (3) Opioid dependence with withdrawal Current Visit: Yes Status: Acute (4) Type 1 diabetes mellitus maturity onset Current Visit: Yes Status: Chronic (5) Hypertension Current Visit: Yes Status: Chronic Qualifiers: Hypertension type: essential hypertension - AMA Did Patient Leave Against Medical Advice: Yes
[2017-10-11] MEDS ORDERED: diazePAM 5 MG TABLET PO SCH (10:00)
[2017-10-11] MEDS ORDERED: METHADONE HCL 5 MG TABLET (FOR DETOX USE ONLY) PO SCH (10:00)
[2017-10-13] MEDS ORDERED: METHADONE HCL 10 MG TABLET (FOR DETOX USE ONLY) PO SCH (10:00)
[2017-10-13] MEDS ORDERED: diazePAM 5 MG TABLET PO SCH (10:00)
[2017-10-14] MEDS ORDERED: METHADONE HCL 5 MG TABLET (FOR DETOX USE ONLY) PO SCH (06:00)
== END 2017-10-10 17:15 | disposition left against medical advice (07) | DRG 770 ==
LOC: YASAS 08:20 → Y6N 11:52
PROVIDERS: ADMIT Internal Medicine; ATTEND Internal Medicine
PROC: HZ2ZZZZ Detoxification Services for Substance Abuse Treatment (ICD-10-PCS; principal; 2017-10-09)
DX: F11.23 Opioid dependence with withdrawal (principal); F10.230 Alcohol dependence with withdrawal, uncomplicated; F17.210 Nicotine dependence, cigarettes, uncomplicated; I10 Essential (primary) hypertension; M10.9 Gout, unspecified; Z79.4 Long term (current) use of insulin
CPT/HCPCS: 36415; 80053; 81003; 82962; 85027; 86593; 93005; 93010